=== PATIENT | female | born 1985 | race American Indian/Alaskan Native ===

== ENCOUNTER 2018-01-24 09:53 | Emergency (ER) | payer MEDICAID ==
[2018-01-24 10:21] VITALS: BP 139/95
--- NOTE | 2018-01-24 12:22 | Emergency Department Report ---
ED Recheck HPI - General Chief Complaint: Extremity Injury, Lower Stated Complaint: FOOT PAIN DM Time Seen by Provider: 01/24/18 12:07 Source: patient Mode of arrival: Ambulatory Limitations: No Limitations - History of Present Illness Initial Comments: This is a 33 y.o. female that presents with bilateral foot pain that started 2 days ago. The right foot is worse than left. Patient reports pain as chronic pain that only occur when she is off metformin. The pain is pressure when ambulating and fine while sitting. She moved here from [place] in September and have not established care with a PCP. She ran out of metformin 1 week ago and now having neuropathy pain. Denies recent injury. She is requesting refills on metformin until she see Dr. Mykel Franco in 2 weeks. Complaint: medication refill request -: week(s) (1 week ran out metformin) Initial Visit For: other (medication refills for diabetes) Returns Today for: request for prescription Context: ran out of medication, other (bilateral neuropathic foot pain) - Related Data Previous Rx's Medication Instructions Recorded Last Taken Type Metformin HCl [Glucophage] 1,000 mg PO BID 30 Days #60 tablet 01/24/18 Unknown Rx Allergies Allergy/AdvReac Type Severity Reaction Status Date / Time amoxicillin Allergy Swelling Verified 01/24/18 10:12 Sulfa (Sulfonamide Allergy Swelling Verified 01/24/18 10:12 Antibiotics) ED Review of Systems ROS: Stated complaint: FOOT PAIN DM Other details as noted in HPI Constitutional: denies: chills, fever Respiratory: denies: cough, shortness of breath, wheezing Cardiovascular: denies: chest pain, palpitations, edema, syncope Gastrointestinal: denies: abdominal pain, nausea, vomiting, diarrhea Musculoskeletal: myalgia (bilateral foot pain with pressure). denies: back pain , joint swelling, arthralgia Skin: denies: rash, lesions Neurological: denies: headache, weakness, paresthesias ED Past Medical Hx - Past Medical History Hx Dementia: Yes - Surgical History Past Surgical History?: Yes Additional Surgical History: X2 - Social History Smoking Status: Current Every Day Smoker Substance Use Type: None - Medications Home Medications: Home Medications Medication Instructions Recorded Confirmed Last Taken Type Metformin HCl [Glucophage] 1,000 mg PO BID 30 Days #60 tablet 01/24/18 Unknown Rx ED Physical Exam - General Limitations: No Limitations General appearance: alert, in no apparent distress - Respiratory Respiratory exam: Present: normal lung sounds bilaterally. Absent: respiratory distress, wheezes, rales, rhonchi, stridor, accessory muscle use - Cardiovascular Cardiovascular Exam: Present: regular rate, normal rhythm, normal heart sounds. Absent: systolic murmur, diastolic murmur, rubs, gallop - GI/Abdominal GI/Abdominal exam: Present: soft, normal bowel sounds. Absent: distended, tenderness, guarding, rebound, rigid, organomegaly, mass - Expanded Lower Extremity Exam Right Hip exam: Present: normal inspection, full ROM Upper Leg exam: Present: normal inspection, full ROM Knee exam: Present: normal inspection, full ROM Lower Leg exam: Present: normal inspection, full ROM Ankle exam: Present: normal inspection, full ROM - Neurological Exam Neurological exam: Present: alert, oriented X3, normal gait ED Course Vital Signs 01/24/18 10:13 Temperature 98.6 F Pulse Rate 91 H Respiratory 18 Rate Blood Pressure 139/95 O2 Sat by Pulse 99 Oximetry ED Recheck MDM - Differential Diagnosis Prescription Refill(s) - Medical Decision Making This is a 33 y.o. female that presents with bilateral naturopathic foot pain. History of DM2. Patient was examined by me. She moved here from [place] in September and have not established PCP. She ran out of metformin 1 week ago. Glucose 173 on admission. Given metformin 1000 mg po once in ER. Denies recent injury. Refused radiograph. States pain is chronic when off medication. Refilled metformin 1000 mg po bid x 30 days, 1 refill and f/u with Endo or PCP in 24-72 hours. Discussed plan with patient and agreed to plan. No further questions noted by the patient. Discharged home in stable condition. Critical care attestation.: If time is entered above; I have spent that time in minutes in the direct care of this critically ill patient, excluding procedure time. ED Disposition Clinical Impression: Diabetes mellitus Qualifiers: Diabetes mellitus type: type 2 Diabetes mellitus [employer] insulin use: without mcc use Diabetes mellitus complication status: with diabetic arthropathy Diabetes mellitus complication detail: with neuropathic arthropathy Qualified Code(s): E11.610 - Type 2 diabetes mellitus with diabetic neuropathic arthropathy Disposition: TO HOME OR SELFCARE Is pt being admited?: No Does the pt Need Aspirin: No Condition: Stable Instructions: Diabetes Mellitus Type 2 in Adults (ED) Additional Instructions: Never discontinue metformin without discussion with doctor. Low blood sugar is often accompanied by symptoms such as tachycardia, sweating, shakiness, intense hunger, or confusion, and must be dealt with promptly by eating a carbohydrate such as apple or drink juice. After self-treatment, blood sugar should be checked if possible. Return to ER or f/u with ER promptly is blood glucose drops below 70 or greater than 150 so that therapy may be adjusted. Eat a carbohydrate snack prior to exercise if blood glucose is less than 100. Follow up with Primary Care Provider Dr. Jacobs at [facility] in 24- 72 days. Prescriptions: Metformin HCl [Glucophage] 1,000 mg PO BID 30 Days #60 tablet Referrals: [facility] [Outside] - 3-5 Days [facility] [Outside] - 3-5 Days ALIYA NEAL MD [Staff Physician] - 3-5 Days [facility] [Provider Group] - 3-5 Days Time of Disposition: 12:40 Print Language: MALDIVIAN
[2018-01-24] MEDS ORDERED: GLUCOPHAGE PO ONE (12:34)
== END 2018-01-24 12:48 | disposition home or self-care (01) ==
LOC: ED 09:53
DX: E11.610 Type 2 diabetes mellitus with diabetic neuropathic arthropathy (principal); F17.200 Nicotine dependence, unspecified, uncomplicated; Z79.4 Long term (current) use of insulin; Z88.1 Allergy status to other antibiotic agents; Z88.2 Allergy status to sulfonamides
CPT/HCPCS: 82962; 99282

== ENCOUNTER 2018-04-28 21:52 | Emergency (ER) | payer MEDICAID ==
[2018-04-29 00:05] LABS: Bilirubin,Urine NEG (Negative); Blood,Urine NEG (Negative); Color,Urine Yellow (Yellow); HCG Qualitative,Urine Negative (Negative); Protein,Urine <15 mg/dL mg/dL (Negative); Urobilinogen,Urine < 2.0 mg/dL (<2.0)
== END 2018-04-28 23:50 | disposition left against medical advice (07) ==
LOC: ED 21:52
DX: R10.2 Pelvic and perineal pain (principal); Z53.21 Procedure and treatment not carried out due to patient leaving prior to being seen by health care provider
CPT/HCPCS: 81001; 81025; 82962